=== PATIENT | male | born 1950 | race American Indian/Alaskan Native ===

== ENCOUNTER 2016-11-03 11:42 | Outpatient (CLI) | payer MEDICARE ==
--- NOTE | 2016-11-03 13:37 | XRay Report ---
CHEST 2 VIEWS INDICATION: Abnormal liver function results. COMPARISON: None similar. FINDINGS: PA and lateral chest radiographs demonstrate normal cardiomediastinal silhouette. Clear lungs. Slight thoracic spondylosis and possible osteopenia. CONCLUSION: No acute disease in the chest. Thank you for the opportunity to participate in this patient's care.
== END 2016-11-03 11:43 | disposition home or self-care (01) ==
LOC: SPVIMAG 11:42
PROVIDERS: ATTEND Internal Medicine
DX: R94.5 Abnormal results of liver function studies (principal); M47.894 Other spondylosis, thoracic region
CPT/HCPCS: 71020

== ENCOUNTER 2017-01-23 12:56 | Inpatient (IN) | payer MEDICARE ==
--- NOTE | 2017-01-23 14:30 | Emergency Department Report ---
Entered by DEDE RODAS, acting as scribe for NAM MAX BLOWING WEASAND. Chief Complaint: Alcohol Stated Complaint: ELEVATED BP/LIVER PROBLEM Time Seen by Provider: 01/23/17 14:18 - HPI History of Present Illness: 66 y/o male c/o tremors beginning in the past but worsening recently. He denies Hx of Parkinson's. Patient reports no pain but was sent to the ED by his PCP. He reports ETOH use PT lives with his sister and she states she can not take care of him - ROS Review of Systems: +tremors +substance abuse - Exam Vital Signs: Vital Signs 01/23/17 14:18 Temperature 98.8 F Pulse Rate 79 Respiratory 18 Rate Blood Pressure 188/102 O2 Sat by Pulse 99 Oximetry Physical Exam: GENERAL: The patient is a well-developed, well-nourished, in no apparent distress. + tremor noted Pt alert to place and person MSE screening note: Focused history and physical exam performed. Due to findings the following was ordered: labs ED Disposition for MSE Condition: Stable This documentation as recorded by the scribe,DEDE RODAS,accurately reflects the service I personally performed and the decisions made by me,NAM MAX, BLOWING WEASAND.
[2017-01-23 14:50] LABS: Basophils % (Auto) 0.7 % (0.0-1.8); Eosinophils % (Auto) 0.1 % (0.0-4.3); Hematocrit 44.7 % (35.5-45.6); Hemoglobin 15.5 gm/dl (11.8-15.2); Mean Corpuscular HGB Conc 35 % (32-34); Mean Corpuscular Hemoglobin 35 pg (28-32); Mean Corpuscular Volume 102 fl (84-94); Platelet Count 201 K/mm3 (140-440); Red Blood Count 4.38 M/mm3 (3.65-5.03); Red Cell Distribution Width 15.7 % (13.2-15.2); White Blood Count 4.7 K/mm3 (4.5-11.0)
[2017-01-23 15:02] LABS: Alanine Aminotransferase 41 units/L (7-56); Albumin 4.2 g/dL (3.9-5); Albumin/Globulin Ratio 0.9 %; Alkaline Phosphatase 86 units/L (35-129); Anion Gap 26 mmol/L; Blood Urea Nitrogen 15 mg/dL (9-20); Calcium 9.8 mg/dL (8.4-10.2); Carbon Dioxide 23 mmol/L (22-30); Chloride 89.1 mmol/L (98-107); Glucose 79 mg/dL (75-100); Potassium 5.6 mmol/L (3.6-5.0); Sodium 132 mmol/L (137-145)
[2017-01-23 19:55] LABS: Urine Drugs of Abuse Note Disclamer
[2017-01-23 20:02] LABS: Bilirubin,Urine NEG (Negative); Blood,Urine SM (Negative); Ketones,Urine 20 mg/dL (Negative); Leukocyte Esterase,Urine NEG (Negative); Mucus,Urine FEW /HPF; Nitrite,Urine NEG (Negative); WBC,Urine < 1.0 /HPF (0.0-6.0)
[2017-01-23 20:03] LABS: Protein,Urine >500 mg/dL (Negative)
[2017-01-23] MEDS ORDERED: VITAMIN B-1 100 MG, FOLVITE 1 MG, INFUVITE 10 ML in NACL 0.9% 1000 ML 1,000 ML IV ONE (20:29)
[2017-01-23] MEDS ORDERED: ATIVAN IV PRN ×2 (20:29)
[2017-01-23] MEDS ORDERED: LIBRIUM PO ONE (20:29)
--- NOTE | 2017-01-23 20:40 | Emergency Department Report ---
ED General Adult HPI - General Chief complaint: Recheck/Abnormal Lab/Rx Stated complaint: ELEVATED BP/LIVER PROBLEM Time Seen by Provider: 01/23/17 14:18 Source: patient, RN notes reviewed, old records reviewed Mode of arrival: Ambulatory Limitations: Altered Mental Status - History of Present Illness Initial comments: This is a 66-year-old male. He has a past medical history of alcohol abuse. Also has a history of thyroid disease. His symptoms in the ER from a physician' s office for evaluation of alcohol abuse and tremors. The patient indicates that he typically consumes alcohol daily. His last drink of alcohol is over the weekend. He reports that he feels very jittery. The patient denies headache, neck pain, chest pain, abdominal pain and shortness of breath. He denies homicidality and suicidality. -: Gradual Severity scale (0 -10): 0 Improves with: other (tremors and jitters typically improve when the patient consumes alcohol) Associated Symptoms: confusion - Related Data Allergies Allergy/AdvReac Type Severity Reaction Status Date / Time Penicillins Allergy Swelling Verified 01/23/17 14:17 ED Review of Systems ROS: Stated complaint: ELEVATED BP/LIVER PROBLEM Other details as noted in HPI Constitutional: malaise. denies: fever Eyes: denies: vision change ENT: denies: epistaxis Respiratory: denies: cough Cardiovascular: denies: chest pain Gastrointestinal: denies: abdominal pain Genitourinary: as per HPI Musculoskeletal: as per HPI Skin: as per HPI Neurological: confusion Psychiatric: denies: homicidal thoughts, suicidal thoughts ED Past Medical Hx - Past Medical History Hx Hypertension: Yes Additional medical history: ETOH abuse, Thyroid - Surgical History Additional Surgical History: abd surgery "stricture " - Social History Smoking Status: Current Every Day Smoker Substance Use Type: Alcohol ED Physical Exam - General Limitations: Altered Mental Status General appearance: alert, anxious, in distress, other (patient is very tremulous and shaking diffusely) - Head Head exam: Present: atraumatic, normocephalic - Eye Eye exam: Present: normal appearance, EOMI - ENT ENT exam: Present: normal orophraynx, mucous membranes moist, other (tongue fasciculations are noted) - Neck Neck exam: Present: normal inspection, full ROM. Absent: tenderness, meningismus - Respiratory Respiratory exam: Present: normal lung sounds bilaterally. Absent: respiratory distress, wheezes, rales, rhonchi, stridor, chest wall tenderness, accessory muscle use, decreased breath sounds, prolonged expiratory - Cardiovascular Cardiovascular Exam: Present: regular rate, normal rhythm, normal heart sounds. Absent: bradycardia, tachycardia, irregular rhythm, systolic murmur, diastolic murmur, rubs, gallop - GI/Abdominal GI/Abdominal exam: Present: soft, normal bowel sounds. Absent: distended, tenderness, guarding, rebound, rigid, pulsatile mass - Rectal Rectal exam: Present: deferred - Extremities Exam Extremities exam: Present: normal inspection, full ROM, normal capillary refill. Absent: tenderness, pedal edema, joint swelling, calf tenderness - Back Exam Back exam: Present: normal inspection, full ROM. Absent: tenderness, CVA tenderness (R), CVA tenderness (L), muscle spasm, paraspinal tenderness, vertebral tenderness - Neurological Exam Neurological exam: Present: altered (patient is alert to name. He knows the year. He does not know the day of the week. He does not know the month. He does not know where he is.), other (Extraocular movements intact. Tongue midline. No facial droop. Facial sensation intact to light touch in the V1, V2 , V3 distribution bilaterally. 5 and 5 strength in 4 extremities.. Sensation is intact to light touch in 4 extremities.). Absent: motor sensory deficit - Psychiatric Psychiatric exam: Absent: homicidal ideation, suicidal ideation - Skin Skin exam: Present: warm, dry, intact, normal color. Absent: rash ED Course Vital Signs 01/23/17 01/23/17 14:18 20:29 Temperature 98.8 F 99.0 F Pulse Rate 79 64 Respiratory 18 20 Rate Blood Pressure 188/102 Blood Pressure 187/94 [Left] O2 Sat by Pulse 99 98 Oximetry - Reevaluation(s) Reevaluation #1: 01/23/17 20:39 differential diagnosis: Alcohol dependency, alcohol withdrawal syndrome, alcoholic hallucinosis, hepatic encephalopathy Assessment and plan: 66-year-old male with diffuse tremulousness, mildly altered sensorium, not homicidal or suicidal, most likely consistent with alcohol withdrawal symptoms and alcohol hallucinosis. He will be given Librium , banana bag, ciwa protocol is initiated, and he will be given a dose of phenobarbital. There is no indication of trauma, however given that he is altered, we will obtain a CT scan of the brain and cervical spine. Patient is not medically suitable for psychiatric placement at this time, although he does not require a 1013, and he will require medical admission for his treatment at this time. Reevaluation #2: 01/23/17 21:55 Case is discussed with the Hospital physician, Dr. Arcos, who accepts the patient to her service. Noncontrast CT scan of the brain is negative. ED Medical Decision Making - Lab Data Result diagrams: 01/23/17 14:25 01/23/17 14:25 Vital Signs 01/23/17 01/23/17 14:18 20:29 Temperature 98.8 F 99.0 F Pulse Rate 79 64 Respiratory 18 20 Rate Blood Pressure 188/102 Blood Pressure 187/94 [Left] O2 Sat by Pulse 99 98 Oximetry Labs 01/23/17 01/23/17 01/23/17 14:25 14:25 14:25 WBC 4.7 RBC 4.38 Hgb 15.5 H Hct 44.7 MCV 102 H MCH 35 H MCHC 35 H RDW 15.7 H Plt Count 201 Lymph % (Auto) 19.2 [place] % (Auto) 9.5 H Eos % (Auto) 0.1 Baso % (Auto) 0.7 Lymph # 0.9 L [place] # 0.4 Eos # 0.0 Baso # 0.0 Seg Neutrophils % 70.5 H Seg Neutrophils # 3.3 Sodium 132 L Potassium 5.6 H Chloride 89.1 L Carbon Dioxide 23 Anion Gap 26 BUN 15 Creatinine 1.0 Estimated GFR > 60 BUN/Creatinine Ratio 15.00 Glucose 79 Calcium 9.8 Total Bilirubin 1.20 AST 107 H ALT 41 Alkaline Phosphatase 86 Total Protein 9.0 H Albumin 4.2 Albumin/Globulin Ratio 0.9 Urine Color Urine Turbidity Urine pH Ur Specific [place] Urine Protein Urine Glucose (UA) Urine Ketones Urine Blood Urine Nitrite Urine Bilirubin Urine Urobilinogen Ur Leukocyte Esterase Urine WBC (Auto) Urine RBC (Auto) U Epithel Cells (Auto) Urine Mucus Salicylates Urine Opiates Screen Urine Methadone Screen Acetaminophen Ur Barbiturates Screen Ur Phencyclidine Scrn Ur Amphetamines Screen U Benzodiazepines Scrn Urine Cocaine Screen U Marijuana (THC) Screen Drugs of Abuse Note Plasma/Serum Alcohol < 0.01 01/23/17 01/23/17 01/23/17 14:25 14:25 19:15 WBC RBC Hgb Hct MCV MCH MCHC RDW Plt Count Lymph % (Auto) [place] % (Auto) Eos % (Auto) Baso % (Auto) Lymph # [place] # Eos # Baso # Seg Neutrophils % Seg Neutrophils # Sodium Potassium Chloride Carbon Dioxide Anion Gap BUN Creatinine Estimated GFR BUN/Creatinine Ratio Glucose Calcium Total Bilirubin AST ALT Alkaline Phosphatase Total Protein Albumin Albumin/Globulin Ratio Urine Color [place] Urine Turbidity Clear Urine pH 6.0 Ur Specific [place] 1.019 Urine Protein >500 Urine Glucose (UA) Neg Urine Ketones 20 Urine Blood Sm Urine Nitrite Neg Urine Bilirubin Neg Urine Urobilinogen 2.0 Ur Leukocyte Esterase Neg Urine WBC (Auto) < 1.0 Urine RBC (Auto) 2.0 U Epithel Cells (Auto) < 1.0 Urine Mucus Few Salicylates < 0.3 L Urine Opiates Screen Urine Methadone Screen Acetaminophen < 15.0 Ur Barbiturates Screen Ur Phencyclidine Scrn Ur Amphetamines Screen U Benzodiazepines Scrn Urine Cocaine Screen U Marijuana (THC) Screen Drugs of Abuse Note Plasma/Serum Alcohol 01/23/17 19:15 WBC RBC Hgb Hct MCV MCH MCHC RDW Plt Count Lymph % (Auto) [place] % (Auto) Eos % (Auto) Baso % (Auto) Lymph # [place] # Eos # Baso # Seg Neutrophils % Seg Neutrophils # Sodium Potassium Chloride Carbon Dioxide Anion Gap BUN Creatinine Estimated GFR BUN/Creatinine Ratio Glucose Calcium Total Bilirubin AST ALT Alkaline Phosphatase Total Protein Albumin Albumin/Globulin Ratio Urine Color Urine Turbidity Urine pH Ur Specific [place] Urine Protein Urine Glucose (UA) Urine Ketones Urine Blood Urine Nitrite Urine Bilirubin Urine Urobilinogen Ur Leukocyte Esterase Urine WBC (Auto) Urine RBC (Auto) U Epithel Cells (Auto) Urine Mucus Salicylates Urine Opiates Screen Presumptive negative Urine Methadone Screen Presumptive negative Acetaminophen Ur Barbiturates Screen Presumptive negative Ur Phencyclidine Scrn Presumptive negative Ur Amphetamines Screen Presumptive negative U Benzodiazepines Scrn Presumptive negative Urine Cocaine Screen Presumptive negative U Marijuana (THC) Screen Presumptive negative Drugs of Abuse Note Disclamer Plasma/Serum Alcohol - Radiology Data Radiology results: report reviewed, image reviewed Noncontrast CT scan of the brain and cervical spine negative for acute disease Critical care attestation.: If time is entered above; I have spent that time in minutes in the direct care of this critically ill patient, excluding procedure time. ED Disposition Clinical Impression: Alcohol withdrawal delirium Disposition: [id number] OP ADMIT IP TO THIS HOSP Is pt being admited?: Yes Condition: Good
--- NOTE | 2017-01-23 21:53 | Cat Scan Report ---
FINAL REPORT PROCEDURE: CT head without contrast. TECHNIQUE: Computerized tomography of the head was performed without contrast material. HISTORY: Altered mental status, ethanol withdrawal. COMPARISON: CT head 06/29/2016. FINDINGS: There is moderate cerebral atrophy. There is mild evidence of chronic ischemic white matter disease. There are no mass lesions. There is no intracranial hemorrhage. There are no signs of acute infarction. The calvarium appears intact. The mastoid air cells and paranasal sinuses are well aerated. IMPRESSION: Moderate cerebral atrophy.
--- NOTE | 2017-01-23 21:56 | Cat Scan Report ---
FINAL REPORT PROCEDURE: CT cervical spine without contrast. TECHNIQUE: Computerized tomography of the cervical spine was performed from the skull base to T1 without contrast material. HISTORY: Altered mental status, ethanol withdrawal, possible neck injury. COMPARISON: No prior studies are available for comparison. FINDINGS: The cervical vertebrae have normal height and alignment. There are no fractures. There is no subluxation. The disc spaces are well maintained. The spinal canal is widely patent. The facet joints appear satisfactory. The neural foramina are widely patent. The prevertebral soft tissues have normal thickness. IMPRESSION: No evidence of acute cervical spine injury.
[2017-01-23] MEDS ORDERED: MILK OF MAGNESIA PO PRN (22:11)
[2017-01-23] MEDS ORDERED: ZOFRAN IV PRN (22:11)
[2017-01-23] MEDS ORDERED: TYLENOL PO PRN (22:11)
[2017-01-23] MEDS ORDERED: DULCOLAX PR PRN (22:11)
--- NOTE | 2017-01-23 22:11 | History and Physical Report ---
History of Present Illness Date of examination: 01/23/17 History of present illness: 66 -year-old man with a history of alcohol abuse statuses to brought into the emergency room, he is unsure why. Per triage note, the patient has been drinking a lot, recent falls. Stated his last drink was Sunday, but alcohol is smelled on his breath Patient denies chest pain, palpitation, shortness of breath, cough, abdominal pain, hematochezia, dysuria, frequency, focal weakness, dysarthria, fever chills , polydipsia polyuria, hot or cold intolerance, easy bruisability, or rash or bleeding from mucosal membrane, rhinorrhea, epistaxis, earache, tinnitus, blurry vision, eye discharge, anxiety, depression. Other review of systems negative PAST SURGICAL HISTORY: Abdominal surgery SOCIAL HISTORY: Drink 1 can of beer every third day, smoked one pack of cigarette every 3 weeks, no drugs FAMILY HISTORY: Hypertension Medications and Allergies Allergies Allergy/AdvReac Type Severity Reaction Status Date / Time Penicillins Allergy Swelling Verified 01/23/17 14:17 Home Medications Medication Instructions Recorded Confirmed Last Taken Type Thiamine [Vitamin B-1] 100 mg PO DAILY #30 tablet 01/25/17 Unknown Rx Active Meds: Active Medications Thiamine HCl 100 mg/ Folic Acid 1 mg/ Multivitamins/Minerals 10 ml/ Sodium Chloride 1,011.2 mls @ 250 mls/hr IV ONCE.ED ONE Stop: 01/24/17 00:31 Last Admin: 01/23/17 22:04 Dose: 250 mls/hr Lorazepam (Ativan) 4 mg IV Q1HR PRN PRN Reason: EM-Prakash 16-25 Lorazepam (Ativan) 2 mg IV Q1HR PRN PRN Reason: RADHAWA-Prakash 8-15 Exam - Physical Exam Narrative exam: Gen. appearance: Patient lying in bed, no apparent distress HEENT: Normocephalic, atraumatic, pupils equally round and reactive to light, extraocular movement intact, and no sclericterus,. No JVD or thyromegaly or nodule,neck supple, no carotid bruit ,mucous membranes moist, no exudate or erythema Heart: S1, S2, regular rate and rhythm Lungs: Clear to auscultation bilaterally, breathing comfortable Abdomen: Positive bowel sounds, nontender, nondistended, no organomegaly Extremity: +tremors, No edema, cyanosis, clubbing Skin: No rash, nodules, warm, dry Neuro: Oriented 3, cranial nerves II-12 intact, speech is fluent, motor and sensory intact - Constitutional Vitals: Temp Pulse Resp BP Pulse Ox 99.0 F 64 20 187/94 98 01/23/17 20:29 01/23/17 20:29 01/23/17 20:29 01/23/17 20:29 01/23/17 20:29 Results - Labs CBC & Chem 7: 01/24/17 06:28 01/24/17 06:28 Labs: Abnormal lab results 01/23/17 01/23/17 01/23/17 Range/Units 14:25 14:25 14:25 Hgb 15.5 H (11.8-15.2) gm/dl MCV 102 H (84-94) fl MCH 35 H (28-32) pg MCHC 35 H (32-34) % RDW 15.7 H (13.2-15.2) % [place] % (Auto) 9.5 H (0.0-7.3) % Lymph # 0.9 L (1.2-5.4) K/mm3 Seg Neutrophils % 70.5 H (40.0-70.0) % Sodium 132 L (137-145) mmol/L Potassium 5.6 H (3.6-5.0) mmol/L Chloride 89.1 L (98-107) mmol/L AST 107 H (5-40) units/L Total Protein 9.0 H (6.3-8.2) g/dL Salicylates < 0.3 L (2.8-20.0) mg/dL - Imaging and Cardiology CT Scan - head: report reviewed Assessment and Plan CT Cervical c-spine reviewed Alcohol withdrawal/DTs Hypertension Alcohol Abuse Admit to medicine Start CIWA protocol with IV Ativan, IV fluids, thiamine, folic acid Start dvt prophalaxis
[2017-01-24] MEDS ORDERED: APRESOLINE IV PRN (01:50)
[2017-01-24] MEDS: NACL 0.9% 1000 ML 1,000 ML IV SCH ×2 (02:19→11:46)
[2017-01-24 07:28] LABS: Basophils % (Auto) 0.7 % (0.0-1.8); Eosinophils % (Auto) 1.7 % (0.0-4.3); Hemoglobin 12.7 gm/dl (11.8-15.2); Mean Corpuscular HGB Conc 34 % (32-34); Mean Corpuscular Hemoglobin 35 pg (28-32); Mean Corpuscular Volume 102 fl (84-94); Platelet Count 129 K/mm3 (140-440); Red Blood Count 3.68 M/mm3 (3.65-5.03); Red Cell Distribution Width 15.4 % (13.2-15.2); White Blood Count 3.6 K/mm3 (4.5-11.0)
[2017-01-24 07:37] LABS: Anion Gap 19 mmol/L; Blood Urea Nitrogen 18 mg/dL (9-20); Calcium 8.2 mg/dL (8.4-10.2); Carbon Dioxide 23 mmol/L (22-30); Chloride 98.3 mmol/L (98-107); Glucose 91 mg/dL (75-100); Sodium 136 mmol/L (137-145)
[2017-01-24 08:00] LABS: Hematocrit 37.4 % (35.5-45.6)
--- NOTE | 2017-01-24 08:23 | Admit Criteria Form ---
Admission Criteria Documentation: ALCOHOL AND PSYCHOACTIVE SUBSTANCE WITHDRAWAL Clinical Indications for Inpatient Care (Place ' X' for any and all applicable criteria): Ongoing inpatient care may be indicated for substance withdrawal[B][C] with ANY ONE of the following(1)(2)(3)(4)(21): [ X]I. Delirium due to alcohol or sedative[D] withdrawal is present. [ ]II. Marked signs of withdrawal are present as indicated by ANY ONE of the following(15)(22)(23) [ ]a) Heart rate greater than 120 beats per minute is present. [ ]b) Severe vomiting is present (eg, precludes maintenance of oral hydration). [ ]c) Grossly visible tremor is present. [ ]d) Profuse perspiration is present. [ ]e) Temperature greater than 101 degrees F (38.3 degrees C) is present. [ ]f) Other signs of severe withdrawal are present (eg, Altered mental status ) [ ]g) Severe withdrawal identified by standardized assessment score[A] [ ]III. Signs of withdrawal that require continued inpatient treatment as indicated by ANY ONE of the following(15)(22)(23): [ ]a) Inadequate response to pharmacotherapy (eg, benzodiazepines) [ ]b) Outpatient or lower level of care is not feasible or appropriate (eg, unavailable or inappropriate to patient condition or treatment history). [ ]IV. Withdrawal signs with high-risk indicator are present as manifested by ALL of the following[A](15)(22)(23) [ ]a) Signs of withdrawal are present as indicated by ANY ONE of the following: [ ]i. Tachycardia is present. [ ]ii. Nausea or vomiting is present. [ ]iii. Tremor is present. [ ]iv. Increased perspiration is present. [ ]v. Other signs of withdrawal are present. [ ]vi. Withdrawal identified by standardized assessment score [A] [ ]b) Elevated risk due to historical or comorbid factor is present as indicated by ANY ONE of the following: [ ]i. History of delirium due to withdrawal is present. [ ]ii. History of seizures due to withdrawal is present.[E] [ ]iii. Intrinsic seizure disorder (epilepsy) is present. [ ]iv. Patient is . [ ]v. Other significant medical history (eg, severe cardiac disease) is present, which is assessed to be at risk for destabilization due to withdrawal. [ ]V. Serious electrolyte abnormalities (eg, hyponatremia, hypokalemia, hypophosphatemia) requiring correction performable only in inpatient setting(6)(25) [ ]. Severe hypoglycemia requiring glucose infusions performable only in inpatient setting(6) [ ]VII. Drug toxicity or instability, such as Altered mental status, respiratory depression, or arrhythmias, that requires inpatient care [ ]VIII. Danger judged unmanageable at lower level of care because of ANY ONE of the following [ ]a) Danger to self [ ]b) Danger to others [ ]c) Grave disability (eg, inability to perform self-care necessary at lower level of care) The original [facility] Care Guidelines content created by [facility] Care Guidelines has been revised. The portions of the content which have been revised are identified through the use of italic text or in bold. [facility] Guidelines has neither reviewed nor approved the modified material. All other unmodified content is copyright [facility] Care Guidelines. Please see references footnoted in the original [facility] CareGuidelines edition 2016 Admission Criteria Met: Yes
[2017-01-24] MEDS: VITAMIN B-1 PO SCH (09:12)
[2017-01-24] MEDS: FOLVITE PO SCH (09:12)
[2017-01-24] MEDS ORDERED: LOVENOX SUB-Q SCH ×2 (10:00)
--- NOTE | 2017-01-24 15:09 | Progress Note ---
Assessment and Plan Assessment and plan: 66 -year-old man with a history of alcohol abuse statuses to brought into the emergency room, he is unsure why. Per discharge note, the patient has been drinking a lot, recent falls. Stated his last drink was Sunday, but alcohol is smelled on his breath Patient denies chest pain, palpitation, shortness of breath, cough, abdominal pain, hematochezia, dysuria, frequency, focal weakness, dysarthria, fever chills , polydipsia polyuria, hot or cold intolerance, easy bruisability, or rash or bleeding from mucosal membrane, rhinorrhea, epistaxis, earache, tinnitus, blurry vision, eye discharge, anxiety, depression. Other review of systems negative * Alcohol withdrawal/DTs * still with visible tremor, and unsteady gait. * Hypertension * STABLE, CONTINUE TO MONITOR * Alcohol Abuse * Extensive counselling provided, patient verbalized understanding. * Thrombocytopenia-able likely secondary to alcohol abuse. * DVT/GI prophy * Will monitor overnight and discharge in AM if remains stable. Patient must avoid Etoh and enrol in a detox program. History Interval history: Patient seen and examined this morning still with some visible tremors. Does not recall why he is in the hospital states he has a sister. No other adverse event reported by nursing staff. Hospitalist Physical - Physical exam Narrative exam: VITAL SIGNS: Reviewed. GENERAL: The patient appeared well nourished and normally developed. Vital signs as documented. HEAD: No signs of head trauma. EYES: Pupils are equal. Extraocular motions intact. EARS: Hearing grossly intact. MOUTH: Oropharynx is normal. NECK: No adenopathy, no JVD. CHEST: Chest with clear breath sounds bilaterally. No wheezes, rales, or rhonchi. CARDIAC: Regular rate and rhythm. S1 and S2, without murmurs, gallops, or rubs. VASCULAR: No Edema. Peripheral pulses normal and equal in all extremities. ABDOMEN: Soft, without detectable tenderness. No sign of distention. No rebound or guarding, and no masses palpated. Bowel Sounds normal. MUSCULOSKELETAL: Good range of motion of all major joints. Extremities without clubbing, cyanosis or edema. NEUROLOGIC EXAM: Alert and oriented x 3. Visible tremor. No focal sensory or strength deficits. Speech normal. Follows commands. PSYCHIATRIC: Mood normal. SKIN: No rash or lesions. - Constitutional Vitals: Temp Pulse Resp BP Pulse Ox 98.2 F 69 18 159/94 97 01/24/17 09:27 01/24/17 09:27 01/24/17 09:27 01/24/17 09:27 01/24/17 09:27 Results - Labs CBC & Chem 7: 01/24/17 06:28 01/24/17 06:28 Labs: Laboratory Last Values WBC 3.6 K/mm3 (4.5-11.0) L 01/24/17 06:28 RBC 3.68 M/mm3 (3.65-5.03) 01/24/17 06:28 Hgb 12.7 gm/dl (11.8-15.2) 01/24/17 06:28 Hct 37.4 % (35.5-45.6) D 01/24/17 06:28 MCV 102 fl (84-94) H 01/24/17 06:28 MCH 35 pg (28-32) H 01/24/17 06:28 MCHC 34 % (32-34) 01/24/17 06:28 RDW 15.4 % (13.2-15.2) H 01/24/17 06:28 Plt Count 129 K/mm3 (140-440) L 01/24/17 06:28 Lymph % (Auto) 36.1 % (13.4-35.0) H 01/24/17 06:28 [place] % (Auto) 13.7 % (0.0-7.3) H 01/24/17 06:28 Eos % (Auto) 1.7 % (0.0-4.3) 01/24/17 06:28 Baso % (Auto) 0.7 % (0.0-1.8) 01/24/17 06:28 Lymph # 1.3 K/mm3 (1.2-5.4) 01/24/17 06:28 [place] # 0.5 K/mm3 (0.0-0.8) 01/24/17 06:28 Eos # 0.1 K/mm3 (0.0-0.4) 01/24/17 06:28 Baso # 0.0 K/mm3 (0.0-0.1) 01/24/17 06:28 Seg Neutrophils % 47.8 % (40.0-70.0) 01/24/17 06:28 Seg Neutrophils # 1.7 K/mm3 (1.8-7.7) L 01/24/17 06:28 Sodium 136 mmol/L (137-145) L 01/24/17 06:28 Potassium 4.0 mmol/L (3.6-5.0) D 01/24/17 06:28 Chloride 98.3 mmol/L (98-107) 01/24/17 06:28 Carbon Dioxide 23 mmol/L (22-30) 01/24/17 06:28 Anion Gap 19 mmol/L 01/24/17 06:28 BUN 18 mg/dL (9-20) 01/24/17 06:28 Creatinine 0.9 mg/dL (0.8-1.5) 01/24/17 06:28 Estimated GFR > 60 ml/min 01/24/17 06:28 BUN/Creatinine Ratio 20.00 % 01/24/17 06:28 Glucose 91 mg/dL (75-100) 01/24/17 06:28 Calcium 8.2 mg/dL (8.4-10.2) L D 01/24/17 06:28 Magnesium 2.00 mg/dL (1.7-2.3) 01/23/17 21:10 Total Bilirubin 1.20 mg/dL (0.1-1.2) 01/23/17 14:25 AST 107 units/L (5-40) H 01/23/17 14:25 ALT 41 units/L (7-56) 01/23/17 14:25 Alkaline Phosphatase 86 units/L (35-129) 01/23/17 14:25 Ammonia 27.0 umol/L (25-60) 01/23/17 21:10 Total Protein 9.0 g/dL (6.3-8.2) H 01/23/17 14:25 Albumin 4.2 g/dL (3.9-5) 01/23/17 14:25 Albumin/Globulin Ratio 0.9 % 01/23/17 14:25 Urine Color Danita (Yellow) 01/23/17 19:15 Urine Turbidity Clear (Clear) 01/23/17 19:15 Urine pH 6.0 (5.0-7.0) 01/23/17 19:15 Ur Specific Bricelyn 1.019 (1.003-1.030) 01/23/17 19:15 Urine Protein >500 mg/dL (Negative) 01/23/17 19:15 Urine Glucose (UA) Neg mg/dL (Negative) 01/23/17 19:15 Urine Ketones 20 mg/dL (Negative) 01/23/17 19:15 Urine Blood Sm (Negative) 01/23/17 19:15 Urine Nitrite Neg (Negative) 01/23/17 19:15 Urine Bilirubin Neg (Negative) 01/23/17 19:15 Urine Urobilinogen 2.0 mg/dL (<2.0) 01/23/17 19:15 Ur Leukocyte Esterase Neg (Negative) 01/23/17 19:15 Urine WBC (Auto) < 1.0 /HPF (0.0-6.0) 01/23/17 19:15 Urine RBC (Auto) 2.0 /HPF (0.0-6.0) 01/23/17 19:15 U Epithel Cells (Auto) < 1.0 /HPF (0-13.0) 01/23/17 19:15 Urine Mucus Few /HPF 01/23/17 19:15 Salicylates < 0.3 mg/dL (2.8-20.0) L 01/23/17 14:25 Urine Opiates Screen Presumptive negative 01/23/17 19:15 Urine Methadone Screen Presumptive negative 01/23/17 19:15 Acetaminophen < 15.0 ug/mL (10.0-30.0) 01/23/17 14:25 Ur Barbiturates Screen Presumptive negative 01/23/17 19:15 Ur Phencyclidine Scrn Presumptive negative 01/23/17 19:15 Ur Amphetamines Screen Presumptive negative 01/23/17 19:15 U Benzodiazepines Scrn Presumptive negative 01/23/17 19:15 Urine Cocaine Screen Presumptive negative 01/23/17 19:15 U Marijuana (THC) Screen Presumptive negative 01/23/17 19:15 Drugs of Abuse Note Disclamer 01/23/17 19:15 Plasma/Serum Alcohol < 0.01 gm% (0-0.07) 01/23/17 14:25
[2017-01-25] MEDS: NACL 0.9% 1000 ML 1,000 ML IV SCH ×2 (03:07→10:09)
[2017-01-25] MEDS: FOLVITE PO SCH (10:07)
[2017-01-25] MEDS: VITAMIN B-1 PO SCH (10:07)
--- NOTE | 2017-01-25 14:40 | Discharge Summary ---
Providers - Providers Date of Admission: 01/23/17 22:11 Date of discharge: 01/26/17 Attending physician: JASMINE GONZALEZ 01/24/17 16:31 Consult to Mental Health [CONS] Routine Reason For Exam: etoh ABUSE/ INPT DETOX Place consult to:: Steve Notified:: YES Was contact made?: Yes If yes, spoke with:: STEVE Time called:: 16:32 Primary care physician: CIERA DAN Hospitalization Condition: Good Hospital course: Patient is a 66 -year-old man with a history of alcohol abuse presented with Tremors. He was drinking a lot, recent falls. Stated his last drink was Sunday, but alcohol is smelled on his breath. Patient denies chest pain, palpitation, shortness of breath, cough, abdominal pain, hematochezia, dysuria, frequency, focal weakness, dysarthria, fever chills, polydipsia polyuria, hot or cold intolerance, easy bruisability, or rash or bleeding from mucosal membrane, rhinorrhea, epistaxis, earache, tinnitus, blurry vision, eye discharge , anxiety, depression. Other review of systems negative * Alcohol withdrawal/DTs * Hypertension * STABLE, CONTINUE TO MONITOR * Alcohol Abuse * Extensive counselling provided, patient verbalized understanding. * Thrombocytopenia-able likely secondary to alcohol abuse. * DVT/GI prophy * Will monitor overnight and discharge today he is stable. Patient must avoid Etoh and enrol in a detox program. Disposition: DC-01 TO HOME OR SELFCARE Time spent for discharge: 35 minutes Core Measure Documentation - Palliative Care Palliative Care/ Comfort Measures: Not Applicable - Core Measures Any of the following diagnoses?: none - VTE Discharge Requirements Deep Vein Thrombosis/Pulmonary Embolism Present on Admission: No Has pt received <5 days of overlap therapy or INR<2.0: No Anticoagulant overlap therapy prescribed at discharge: No Contraindication No Overlap Therapy order at DC: Not Indicated Exam - Physical Exam Narrative exam: GEN: WDWN, NAD, AWAKE, ALERT, ORIENTATED x 3 CVS: RRR, NORMAL S1S2 LUNGS/CHEST: CTA B, NORMAL CHEST EXPANSION B, GOOD AIR ENTRY B ABD: SOFT, NTND, GBS, NO REBOUND OR GUARDING EXT/SKIN: NO SIGNIFICANT EDEMA OR RASH MSK: FROM X 4 EXTREMITIES NEURO: CN 2-12 GROSSLY INTACT, NO new FOCAL DEFICITS PSY: CALM - Constitutional Vitals: Temp Pulse Resp BP Pulse Ox 98.0 F 70 18 134/75 99 01/25/17 12:35 01/25/17 12:35 01/25/17 12:35 01/25/17 12:35 01/25/17 04:56 Plan Activity: other (no strenous activites until cleared by PCP. ) Diet: low salt Follow up with: CIERA DAN MD [Primary Care Provider] - 3-5 Days
--- NOTE | 2017-01-25 16:11 | Consultation ---
History of Present Illness - Reason for Consult Consult date: 01/25/17 Reason for consult: Mental Health Evaluation Requesting physician: BESS ARVIZU - Chief Complaint Chief complaint: "How are you" - History of Present Psychiatric Illness Patient is a 66 -year-old man with a history of alcohol abuse presented with Tremors. Today patient is calm and cooperative during the assessment. He stated that he drink alcohol delay. He stated that he started drinking at the age of 17. He stated that he drink a 6 pack of beer or more daily with one for his friends. He stated that he think about his , who some years ago. Patient stated these thoughts does bother him. I asked if this may be a reason for his excessive drinking he stated, "possibly." He did state that he is willing to go to rehab/detox at [place]. He denies SI/HIs', AVH's, sleep disturbance, and a poor appetite. He denies recreational drug use. Medications and Allergies Allergies Allergy/AdvReac Type Severity Reaction Status Date / Time Penicillins Allergy Swelling Verified 01/23/17 14:17 Home Medications Medication Instructions Recorded Confirmed Last Taken Type Thiamine [Vitamin B-1] 100 mg PO DAILY #30 tablet 01/25/17 Unknown Rx Active Meds: Active Medications Acetaminophen (Tylenol) 650 mg PO Q4H PRN PRN Reason: Pain MILD(1-3)/Fever >100.5/CERVANTES Bisacodyl (Dulcolax) 10 mg MN QDAY PRN PRN Reason: Constipation unrelieved by MOM Folic Acid (Folvite) 1 mg PO QDAY BLAKE Last Admin: 01/25/17 10:07 Dose: 1 mg Hydralazine HCl (Apresoline) 5 mg IV Q6HR PRN PRN Reason: Hypertension Sodium Chloride (Nacl 0.9% 1000 Ml) 1,000 mls @ 100 mls/hr IV DIRECT BLAKE Last Admin: 01/25/17 10:09 Dose: 100 mls/hr Lorazepam (Ativan) 4 mg IV Q1HR PRN PRN Reason: CIWA-Ar 16-25 Lorazepam (Ativan) 2 mg IV Q1HR PRN PRN Reason: CIWA-Ar 8-15 Magnesium Hydroxide (Milk Of Magnesia) 30 ml PO Q4H PRN PRN Reason: Constipation Ondansetron HCl (Zofran) 4 mg IV Q8H PRN PRN Reason: N/V unrelieved by Reglan Thiamine HCl (Vitamin B-1) 100 mg PO DAILY BLAKE Last Admin: 01/25/17 10:07 Dose: 100 mg Past psychiatric history - Past Medical History Past Medical History: other (GI Obstruction) Past Surgical History: bowel surgery - past Psychiatric treatment and history psychiatric treatment history: Denies a psy hx. Father was a alcoholic. - Social History Social history: lives with family (GED, ) Mental Status Exam - Vital signs Last Vital Signs Temp 98.0 F 01/25/17 12:35 Pulse 70 01/25/17 12:35 Resp 18 01/25/17 12:35 BP 134/75 01/25/17 12:35 Pulse Ox 99 01/25/17 04:56 - Exam Narrative exam: ROS: (-) psychosis, (-) depression MSE: Appearance: calm, cooperative Behavior: good eye contact Speech: regular rate and tone Mood: "okay" Affect: congruent to mood Thought Process: circumstantial Thought Content: denies SI/HI's and AVH's Motor Activity: ambulatory Cognition: A/Ox3 Insight: fair Judgment: fair Results Result Diagrams: 01/24/17 06:28 01/24/17 06:28 All other labs normal. Assessment and Plan Assessment and plan: Impression: Alcohol Use DO. Today patient is calm and cooperative during the assessment. He stated that he drink alcohol delay. He stated that he started drinking at the age of 17. He stated that he drink a 6 pack of beer or more daily with one for his friends. Mild tremors noted on assessment. He denies SI/ HI's and AVH's. DD: Depressive DO Recommendation/Plan: Patient is willing to volunteer for a detox program ( [facility]) once medically cleared. Continue CIWA. Discussed the importance to abstain from alcohol consumption (etoh).
[2017-01-26 05:52] VITALS: BP 128/75
[2017-01-26] MEDS: FOLVITE PO SCH (09:18)
[2017-01-26] MEDS: VITAMIN B-1 PO SCH (09:18)
--- NOTE | 2017-02-01 23:58 | Physician Progress Note ---
SUBJECTIVE: The patient was seen and examined for alcohol withdrawal. He still had tremors. No other adverse event reported to me. OBJECTIVE: VITAL SIGNS: Temperature 98.6 degrees Fahrenheit, pulse rate 74, respiration 18, 98% pulse ox, and blood pressure 155/81. GENERAL: Well developed, well nourished, no acute distress, awake, alert and oriented x3. CARDIOVASCULAR: Regular rate and rhythm. Normal S1, S2. LUNG: Clear to auscultation bilaterally. NEUROLOGIC: Visible tremors. No focal sensory or strength deficits. Speech is normal. Following commands. LABORATORY TEST: Results reviewed. ASSESSMENT AND PLAN: 1. Alcohol withdrawal with delirium tremens. Continue Clinical [place] Withdrawal Assessment protocol and continue to monitor. 2. Hypertension: Stable. Continue to monitor. 3. Alcohol abuse. Extensive counseling provided. JOB# [id number] TRW/VICTORINO
== END 2017-01-26 14:00 | disposition home or self-care (01) | DRG 897 ==
LOC: ED 12:56 → 4A 22:11 → 3A 01-26 07:46
PROVIDERS: ADMIT Internal Medicine; ATTEND Internal Medicine
DX: F10.231 Alcohol dependence with withdrawal delirium (principal); I10 Essential (primary) hypertension; F17.200 Nicotine dependence, unspecified, uncomplicated; D69.6 Thrombocytopenia, unspecified; Z88.0 Allergy status to penicillin; Z82.49 Family history of ischemic heart disease and other diseases of the circulatory system
CPT/HCPCS: 36415; 70450; 72125; 80048; 80053; 80307; 80320; 81001; 82140; 83735; 85025; 96365; 96375; G0480; J1650; J2560; J3411; J7030

== ENCOUNTER 2017-02-01 11:31 | Emergency (ER) | payer MEDICARE ==
[2017-02-01 13:14] LABS: Basophils % (Auto) 0.4 % (0.0-1.8); Eosinophils % (Auto) 0.5 % (0.0-4.3); Hematocrit 44.1 % (35.5-45.6); Hemoglobin 14.9 gm/dl (11.8-15.2); Mean Corpuscular HGB Conc 34 % (32-34); Mean Corpuscular Hemoglobin 35 pg (28-32); Mean Corpuscular Volume 103 fl (84-94); Platelet Count 182 K/mm3 (140-440); Red Blood Count 4.29 M/mm3 (3.65-5.03); Red Cell Distribution Width 14.6 % (13.2-15.2); White Blood Count 4.4 K/mm3 (4.5-11.0)
[2017-02-01 14:38] LABS: INR 1.01 (0.87-1.13)
[2017-02-01 15:53] LABS: BUN/Creatinine Ratio 11.11; Blood Urea Nitrogen 10 mg/dL (9-20); Calcium 9.4 mg/dL (8.4-10.2); Carbon Dioxide 14 mmol/L (22-30); Glucose 73 mg/dL (75-100)
[2017-02-01 15:54] LABS: Anion Gap 26 mmol/L; Chloride 99.7 mmol/L (98-107); Potassium 3.5 mmol/L (3.6-5.0); Sodium 136 mmol/L (137-145)
--- NOTE | 2017-02-01 23:34 | Emergency Department Report ---
ED Chest Pain HPI - General Chief Complaint: Medical Clearance Stated Complaint: CHEST PAIN/SHAKES Time Seen by Provider: 02/01/17 22:17 Source: patient Mode of arrival: Ambulatory Limitations: No Limitations - History of Present Illness Initial Comments: 66-year-old male presents to the emergency department complaining of uncontrollable shakes and right-sided chest pain. The uncontrollable shakes abdomen present for quite some time, but the chest pain has been intermittent for one week. He describes aching pain in his chest that does not radiate He states he only feels the pain when he is lying down. He denies difficulty breathing, nausea, vomiting, dizziness, or diaphoresis. At this time, he reports his symptoms have resolved. There are no other complaints. MD Complaint: chest pain -: Gradual, week(s) (1) Onset: during rest Pain Location: right chest Pain Radiation: none Severity: mild Severity scale (0 -10): 2 Quality: aching Consistency: intermittent, now resolved Improves With: nothing Worsens With: supine re: denies: nausea, vomting, diaphoresis, dyspnea Treatments Prior to Arrival: none Aspirin use within the Past 7 Days: (0) No - Related Data Previous Rx's Medication Instructions Recorded Last Taken Type Thiamine [Vitamin B-1] 100 mg PO DAILY #30 tablet 01/25/17 Unknown Rx Allergies Allergy/AdvReac Type Severity Reaction Status Date / Time Penicillins Allergy Swelling Verified 02/01/17 11:49 Heart Score - HEART Score History: Slightly suspicious EKG: Normal Age: > 65 Risk factors: 1-2 risk factors Troponin: < normal limit HEART Score: 3 ED Review of Systems ROS: Stated complaint: CHEST PAIN/SHAKES Other details as noted in HPI Comment: All other systems reviewed and negative Cardiovascular: chest pain ED Past Medical Hx - Past Medical History Previous Medical History?: Yes Hx Hypertension: Yes Additional medical history: ETOH abuse, Thyroid - Surgical History Past Surgical History?: Yes Additional Surgical History: abd surgery "stricture " - Family History Family history: no significant - Social History Smoking Status: Current Every Day Smoker Substance Use Type: None - Medications Home Medications: Home Medications Medication Instructions Recorded Confirmed Last Taken Type Thiamine [Vitamin B-1] 100 mg PO DAILY #30 tablet 01/25/17 02/01/17 Unknown Rx ED Physical Exam - General Limitations: No Limitations General appearance: alert, in no apparent distress - Head Head exam: Present: atraumatic, normocephalic - Eye Eye exam: Present: normal appearance, PERRL, EOMI - ENT ENT exam: Present: normal exam, normal orophraynx, mucous membranes moist - Neck Neck exam: Present: normal inspection, full ROM. Absent: tenderness - Respiratory Respiratory exam: Present: normal lung sounds bilaterally. Absent: respiratory distress - Cardiovascular Cardiovascular Exam: Present: regular rate, normal rhythm, normal heart sounds - GI/Abdominal GI/Abdominal exam: Present: soft, normal bowel sounds. Absent: distended, tenderness - Extremities Exam Extremities exam: Present: normal inspection, full ROM. Absent: tenderness - Back Exam Back exam: Present: normal inspection, full ROM. Absent: tenderness - Neurological Exam Neurological exam: Present: alert, oriented X3. Absent: motor sensory deficit - Skin Skin exam: Present: warm, dry, intact ED Course Vital Signs 02/01/17 11:54 Temperature 97.7 F Pulse Rate 82 Respiratory 18 Rate Blood Pressure 154/99 O2 Sat by Pulse 100 Oximetry CLYDE score - Clyde Score Age > 65: (1) Yes Aspirin use within the Past 7 Days: (0) No 3 or more CAD Risk Factors: (0) No 2 or more Angina events in past 24 hrs: (0) No Known CAD with more than 50% Stenosis: (0) No Elevated Cardiac Markers: (0) No ST Deviation Greater than 0.5mm: (0) No CLYDE Score: 1 ED Medical Decision Making - Lab Data Result diagrams: 02/01/17 12:32 02/01/17 12:32 - EKG Data -: EKG Interpreted by De EKG shows normal: sinus rhythm, axis, intervals, QRS complexes Rate: normal - EKG Data When compared to previous EKG there are: no significant change Interpretation: unchanged when compared t (06/29/2016), nonspecific ST-T wave kelly - Medical Decision Making Laboratory results reviewed and discussed with the patient. Patient has remained pain-free in the emergency department. He has had a nonischemic ECG and 3 negative troponins. Patient will be discharged at this time. - Differential Diagnosis atypical chest pain, chest wall pain, ACS Critical care attestation.: If time is entered above; I have spent that time in minutes in the direct care of this critically ill patient, excluding procedure time. ED Disposition Clinical Impression: Non-cardiac chest pain Disposition: DC-01 TO HOME OR SELFCARE Is pt being admited?: No Condition: Stable Instructions: Chest Pain (ED) Referrals: PRIMARY CARE, [Primary Care Provider] - 3-5 Days Time of Disposition: 23:37
[2017-02-02 01:12] VITALS: BP 156/92
== END 2017-02-02 01:13 | disposition home or self-care (01) ==
LOC: ED 11:31
DX: R07.89 Other chest pain (principal); I10 Essential (primary) hypertension; F17.200 Nicotine dependence, unspecified, uncomplicated; F10.10 Alcohol abuse, uncomplicated; Y90.9 Presence of alcohol in blood, level not specified; Z88.0 Allergy status to penicillin
CPT/HCPCS: 36415; 80048; 82140; 82550; 84484; 85025; 85610; 93005; 93010; 99284

== ENCOUNTER 2017-04-29 07:47 | Emergency (ER) | payer MEDICARE ==
[2017-04-29 09:19] LABS: Basophils % (Auto) 0.4 % (0.0-1.8); Hematocrit 35.8 % (35.5-45.6); Hemoglobin 12.2 gm/dl (11.8-15.2); Mean Corpuscular HGB Conc 34 % (32-34); Mean Corpuscular Hemoglobin 34 pg (28-32); Mean Corpuscular Volume 99 fl (84-94); Platelet Count 207 K/mm3 (140-440); Red Blood Count 3.63 M/mm3 (3.65-5.03); Red Cell Distribution Width 14.4 % (13.2-15.2); White Blood Count 11.3 K/mm3 (4.5-11.0)
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
[2017-04-29] MEDS ORDERED: NACL 0.9% 1000 ML 1,000 ML IV ONE ×2 (13:46→17:34)
[2017-04-29 14:40] LABS: Basophils % (Auto) 0.3 % (0.0-1.8); Eosinophils % (Auto) 0.1 % (0.0-4.3); Hematocrit 38.4 % (35.5-45.6); Hemoglobin 12.9 gm/dl (11.8-15.2); Mean Corpuscular HGB Conc 34 % (32-34); Mean Corpuscular Hemoglobin 34 pg (28-32); Mean Corpuscular Volume 99 fl (84-94); Platelet Count 210 K/mm3 (140-440); Red Blood Count 3.86 M/mm3 (3.65-5.03); Red Cell Distribution Width 14.1 % (13.2-15.2); White Blood Count 8.1 K/mm3 (4.5-11.0)
[2017-04-29 15:05] LABS: Alanine Aminotransferase 16 units/L (7-56); Albumin 4.3 g/dL (3.9-5); Albumin/Globulin Ratio 1.1 %; Alkaline Phosphatase 68 units/L (35-129); Anion Gap 24 mmol/L; BUN/Creatinine Ratio 13.63; Blood Urea Nitrogen 15 mg/dL (9-20); Calcium 9.6 mg/dL (8.4-10.2); Carbon Dioxide 22 mmol/L (22-30); Creatine Kinase 1167 units/L (55-170); Glucose 90 mg/dL (75-100); Potassium 4.5 mmol/L (3.6-5.0); Sodium 139 mmol/L (137-145); Total Protein 8.1 g/dL (6.3-8.2)
--- NOTE | 2017-04-29 16:51 | Cat Scan Report ---
FINAL REPORT PROCEDURE: CT ABDOMEN PELVIS W CON TECHNIQUE: Computerized axial tomography of the abdomen and pelvis was performed after the IV injection of iodinated nonionic contrast. HISTORY: Right-sided abdominal pain after trauma COMPARISON: No prior studies are available for comparison. FINDINGS: Visualized lower thorax: No significant abnormality. Liver: Scattered granulomas are noted in the liver. Spleen: Normal size and attenuation. Gallbladder and biliary system: Numerous gallstones are present. Pancreas: Normal. Adrenals: Indeterminate etiology 13 millimeter left adrenal nodule. Kidneys: Normal. GI tract: There is moderate to large volume of stool in the colon, suggesting constipation. There is mild diverticulosis of the left colon. The appendix is visualized and does not appear inflamed. No bowel obstruction or inflammation is seen. Lymph nodes and mesentery: Normal. Vasculature: Normal. Bladder: Normal. Reproductive organs: Prostate gland measures 5 centimeters transverse. Peritoneum: No free fluid. Musculoskeletal structures: There is subcutaneous stranding of the right abdominal wall, suggesting subcutaneous contusion. There are fractures of the anterior lateral 6th and 7th ribs with callus formation, suggesting subacute healing fractures. There are significant degenerative disc changes at L4-5. Other: None. IMPRESSION: Healing right rib fractures. Right abdominal wall subcutaneous stranding, which may be related to contusion Cholelithiasis.
[2017-04-29] MEDS ORDERED: TYLENOL PO ONE (17:43)
[2017-04-29 21:15] VITALS: BP 137/80
== END 2017-04-29 21:16 | disposition home or self-care (01) ==
LOC: ED 07:47
DX: S30.811A Abrasion of abdominal wall, initial encounter (principal); F03.90 Unspecified dementia, unspecified severity, without behavioral disturbance, psychotic disturbance, mood disturbance, and anxiety; I10 Essential (primary) hypertension; E11.9 Type 2 diabetes mellitus without complications; F17.200 Nicotine dependence, unspecified, uncomplicated; Z88.0 Allergy status to penicillin; V89.2XXA Person injured in unspecified motor-vehicle accident, traffic, initial encounter; Y93.89 Activity, other specified; Y92.89 Other specified places as the place of occurrence of the external cause; Y99.8 Other external cause status
CPT/HCPCS: 36415; 74177; 80053; 82550; 82962; 83880; 85025; 96360; 96361; 99284; G0480; J7030; Q9967; 80320